=== PATIENT | female | born 1995 | race Caucasian/White ===

== ENCOUNTER 2019-04-21 00:37 | Emergency (ER) | payer OTHER ==
[~2019-04-21] VITALS: Ht 154.9 cm; Wt 77.1 kg
[~2019-04-21 00:37] MED LIST: KEFLEX 500 MG E2 CAP PO; MACROBID100 M1 PO; MOTRIN400 MG PO; NYSTATIN100000 U/M PO; PREDNISONE20 M1 PO; TYLENOL W/CODE480 ML PO
[2019-04-21] MEDS ORDERED: Motrin,Rufen800 MG PO (01:10)
[2019-04-21] MEDS ORDERED: ROBAXIN500 M1 PO (01:10)
== END 2019-04-21 03:20 | disposition home or self-care (01) ==
LOC: ED 00:37
DX: S16.1XXA Strain of muscle, fascia and tendon at neck level, initial encounter (principal); Z79.2 Long term (current) use of antibiotics; V89.2XXA Person injured in unspecified motor-vehicle accident, traffic, initial encounter; Y93.89 Activity, other specified; Y92.488 Other paved roadways as the place of occurrence of the external cause; Y99.8 Other external cause status

== ENCOUNTER → 2019-06-21 | Outpatient (CLI) | payer SELFPAY ==
[~2019-06-21] MED LIST changes: +AMOXICILLIN500 M3 PO; +CELEXA20 MG PO; +CORTISPORIN SUS10 ML OT; +Motrin,Rufen800 MG PO; +ROBAXIN500 M1 PO; +VISTARIL25 M2 PO
== END | disposition home or self-care (01) ==
LOC: RESCLI 00:27
DX: Z23 Encounter for immunization (principal); F41.1 Generalized anxiety disorder; F33.1 Major depressive disorder, recurrent, moderate; E66.9 Obesity, unspecified; F41.0 Panic disorder [episodic paroxysmal anxiety]; Z30.09 Encounter for other general counseling and advice on contraception; Z68.33 Body mass index [BMI] 33.0-33.9, adult; Z79.899 Other long term (current) drug therapy

== ENCOUNTER → 2019-06-28 | Outpatient (CLI) | payer SELFPAY | END | disposition home or self-care (01) | LOC: RESCLI 02:21 | DX: F33.1 Major depressive disorder, recurrent, moderate (principal); Z30.09 Encounter for other general counseling and advice on contraception; E66.9 Obesity, unspecified; F41.1 Generalized anxiety disorder; F41.0 Panic disorder [episodic paroxysmal anxiety]; Z68.39 Body mass index [BMI] 39.0-39.9, adult; Z79.899 Other long term (current) drug therapy ==

== ENCOUNTER 2019-07-03 13:19 | Emergency (ER) | payer SELFPAY ==
[~2019-07-03] VITALS: Ht 154.9 cm; Wt 79.4 kg
[~2019-07-03 13:19] MED LIST changes: -AMOXICILLIN500 M3 PO; -CELEXA20 MG PO; -CORTISPORIN SUS10 ML OT; -VISTARIL25 M2 PO
[2019-07-03] MEDS ORDERED: CELEXA20 MG PO (13:22)
[2019-07-03] MEDS ORDERED: VISTARIL25 M2 PO (13:23)
[2019-07-03] MEDS ORDERED: AMOXICILLIN500 M3 PO (14:42)
[2019-07-03] MEDS ORDERED: CORTISPORIN SUS10 ML OT (14:42)
== END 2019-07-03 14:50 | disposition home or self-care (01) ==
LOC: ED 13:19
DX: H66.93 Otitis media, unspecified, bilateral (principal); Z79.899 Other long term (current) drug therapy

== ENCOUNTER 2019-07-04 17:34 | Emergency (ER) | payer SELFPAY ==
[~2019-07-04] VITALS: Ht 154.9 cm; Wt 79.4 kg
[~2019-07-04 17:34] MED LIST changes: +AMOXICILLIN500 M3 PO; +CELEXA20 MG PO; +CORTISPORIN SUS10 ML OT; +VISTARIL25 M2 PO
== END 2019-07-04 19:03 | disposition home or self-care (01) ==
LOC: ED 17:34
DX: H66.93 Otitis media, unspecified, bilateral (principal); Z79.899 Other long term (current) drug therapy

== ENCOUNTER → 2019-09-13 | Outpatient (CLI) | payer SELFPAY | END | disposition home or self-care (01) | LOC: RESCLI 00:55 | DX: Z30.09 Encounter for other general counseling and advice on contraception (principal); F41.1 Generalized anxiety disorder; F32.9 Major depressive disorder, single episode, unspecified; Z79.899 Other long term (current) drug therapy ==

== ENCOUNTER 2019-10-13 13:01 | Emergency (ER) | payer SELFPAY ==
[~2019-10-13] VITALS: Ht 154.9 cm; Wt 77.1 kg
== END 2019-10-13 15:02 | disposition home or self-care (01) ==
LOC: ED 13:01
DX: G43.909 Migraine, unspecified, not intractable, without status migrainosus (principal); Z79.899 Other long term (current) drug therapy

== ENCOUNTER → 2020-02-20 | Outpatient (CLI) | payer SELFPAY | LOC: RESCLI 14:20 → LAB 14:20 | DX: Z30.09 Encounter for other general counseling and advice on contraception (principal) ==

== ENCOUNTER 2020-08-07 16:00 | Emergency (ER) | payer BC ==
[~2020-08-07] VITALS: Wt 72.6 kg
[2020-08-07 18:15] LABS: BILIRUBIN Negative (Negative); BLOOD Negative (Negative); CLARITY Cloudy (Clear); COLOR Yellow (Yellow); GLUCOSE Negative (Negative); KETONE Negative (Negative); LEUKO ESTERASE Trace (Negative); NITRITE Negative (Negative); SPECIFIC GRAVITY 1.025 (1.001-1.030)
[2020-08-07 18:26] LABS: BACTERIA TRACE; CALCIUM OXALATE CRYSTALS 1+; EPITHELIAL CELLS 21-30
[2020-08-07 19:22] LABS: BASO % 0.4 % (0.0-1.0); EOS # 0.1 10*3/uL (0.0-0.4); EOS % 0.7 % (1.0-4.0); HEMATOCRIT 48.2 % (37.0-47.0); LYMPH # 1.6 10*3/uL (1.3-4.4); LYMPH % 22.3 % (27.0-41.0); MEAN CELL VOLUME 88.3 fl (81.0-99.0); MEAN CORPUSCULAR HGB 29.5 pg (27.0-31.0); MEAN CORPUSCULAR HGB CONC 33.4 g/dl (33.0-37.0); MEAN PLATELET VOLUME 9.9 fl (9.6-12.3); MONO # 0.7 10*3/uL (0.1-1.0); MONO % 9.9 % (3.0-9.0); NEUT # 4.6 10*3/uL (2.3-7.9); NEUT % 66.6 % (47.0-73.0); PLATELET COUNT AUTOMATED 294 10*3/uL (130-400); RED BLOOD COUNT 5.46 10*6/uL (4.10-5.10); RED CELL DISTRI WIDTH 12.2 % (0-14.5)
[2020-08-07 19:36] LABS: ALBUMIN 3.9 gm/dl (3.1-4.5); ALKALINE PHOSPHATASE 134 U/L (45-117); BUN 8 mg/dl (7-24); CHLORIDE 110 mmol/L (98-107); CREATININE 0.59 mg/dL (0.55-1.02); LIPASE 86 U/L (73-393); POTASSIUM 3.7 mmol/L (3.5-5.1); SGOT/AST 16 IU/L (3-35); SGPT/ALT 19 U/L (12-78); SODIUM 142 mmol/L (136-145); TOTAL PROTEIN 7.9 gm/dL (6.4-8.2)
[2020-08-07] MEDS ORDERED: IBUPROFEN600 MG PO (20:31)
== END 2020-08-07 20:31 | disposition home or self-care (01) ==
LOC: ED 16:00
PROVIDERS: Physician Assistant
DX: R10.9 Unspecified abdominal pain (principal); Z79.899 Other long term (current) drug therapy

== ENCOUNTER → 2023-01-22 | Outpatient (CLI) | payer BC, OTHER ==
[~2023-01-22] MED LIST changes: +IBUPROFEN600 MG PO
== END | disposition home or self-care (01) ==
LOC: LAB 07:52
DX: F31.81 Bipolar II disorder (principal)

== ENCOUNTER 2025-07-09 22:36 | Emergency (ER) | payer BC ==
[~2025-07-09] VITALS: Ht 154.9 cm; Wt 94.3 kg
[~2025-07-09 22:36] MED LIST changes: +AMOX-CLAV 875-1 EACH PO; +REGLAN10 M1 PO
[2025-07-09] MEDS ORDERED: ZOLOFT50 MG PO (23:21)
== END 2025-07-10 00:18 | disposition home or self-care (01) ==
LOC: ED 22:36
DX: R07.89 Other chest pain (principal); T43.225A Adverse effect of selective serotonin reuptake inhibitors, initial encounter; R06.02 Shortness of breath; Z79.899 Other long term (current) drug therapy; Z96.22 Myringotomy tube(s) status; Y92.89 Other specified places as the place of occurrence of the external cause

== ENCOUNTER → 2025-07-16 | Outpatient (CLI) | payer BC ==
[~2025-07-16] MED LIST changes: +ZOLOFT50 MG PO
== END | disposition home or self-care (01) ==
LOC: US 13:00
PROVIDERS: ATTEND Nurse Practitioner Women's Health
DX: N63.20 Unspecified lump in the left breast, unspecified quadrant (principal)

== ENCOUNTER → 2025-07-31 | Outpatient (CLI) | payer BC | END | disposition home or self-care (01) | LOC: MAMMO 02:16 | PROVIDERS: ATTEND Nurse Practitioner Women's Health | DX: N63.11 Unspecified lump in the right breast, upper outer quadrant (principal) ==